=== PATIENT | female | born 1945 | race Caucasian/White ===

== ENCOUNTER → 2017-01-22 | Outpatient (CLI) | payer OTHER ==
[~2017-01-22] MED LIST: AMLO-511 PO; ASPI-1093 PO; ATOR20TA86 PO; METO-325 PO; TRAM50TA4 PO
== END | disposition home or self-care (01) ==
LOC: RADPV 09:30
PROVIDERS: ATTEND Family Medicine
DX: M19.011 Primary osteoarthritis, right shoulder (principal)

== ENCOUNTER 2022-07-31 12:50 | Emergency (ER) | payer OTHER ==
[~2022-07-31] VITALS: Ht 157.5 cm; Wt 55.7 kg
[~2022-07-31 12:50] MED LIST changes: +AMLO-257 PO; -AMLO-511 PO; -ASPI-1093 PO; +ASPI-1444 PO; -METO-325 PO; +METO-558 PO
[2022-07-31 13:33] VITALS: BP 141/79
[2022-07-31] MEDS ORDERED: NEOMYCIN/BACITRACIN/POLYMYXIN B OINTMENT PACKET TP ONE (16:45)
== END 2022-07-31 17:25 | disposition home or self-care (01) ==
LOC: EMS 12:50
DX: S00.12XA Contusion of left eyelid and periocular area, initial encounter (principal); S60.812A Abrasion of left wrist, initial encounter; S80.212A Abrasion, left knee, initial encounter; I10 Essential (primary) hypertension; Z85.42 Personal history of malignant neoplasm of other parts of uterus; Z90.710 Acquired absence of both cervix and uterus; W01.198A Fall on same level from slipping, tripping and stumbling with subsequent striking against other object, initial encounter; Y93.01 Activity, walking, marching and hiking; Y92.89 Other specified places as the place of occurrence of the external cause; Y99.8 Other external cause status
CPT/HCPCS: 70450; 99284

== ENCOUNTER 2022-08-11 11:34 | Inpatient (IN) | payer OTHER ==
[~2022-08-11] VITALS: Ht 162.6 cm; Wt 53.3 kg
[2022-08-11] MEDS ORDERED: LISI-892 PO (11:52)
[2022-08-11 12:00] LABS: BASOPHILS % (AUTO) 0.5 % (0.0-2.0); EOSINOPHILS % (AUTO) 1.6 % (1.0-6.0); HEMATOCRIT 39.7 % (36-46); HEMOGLOBIN 13.4 g/dL (12.0-16.0); LYMPHOCYTES % (AUTO) 16.1 % (22.0-44.0); MEAN CORPUSCULAR HEMOGLOBIN 32.3 pg (26.0-34.0); MEAN CORPUSCULAR HGB CONC 33.8 G/dL (31.0-37.0); MEAN CORPUSCULAR VOLUME 96 fL (80-100); MONOCYTES # (AUTO) 0.8 K/uL (0.1-1.0); MONOCYTES % (AUTO) 12.9 % (2.0-9.0); NEUTROPHILS # (AUTO) 4.4 K/uL (1.8-7.7); NEUTROPHILS % (AUTO) 68.9 % (40.0-70.0); PLATELET COUNT (AUTO) 227 K/uL (150-450); RED BLOOD CELL COUNT(AUTO) 4.15 MIL/uL (4.00-5.20); RED CELL DISTRIBUTION WIDTH 12.2 % (11.5-14.5)
[2022-08-11 12:12] LABS: PROTHROMBIN TIME 11.1 SEC (9.4-11.6)
[2022-08-11 12:15] LABS: ALBUMIN 4.1 g/dL (3.4-5.0); BILIRUBIN,TOTAL 0.7 mg/dL (0.1-1.0); CALCIUM, TOTAL 8.9 mg/dL (8.8-10.5); CREATININE 1.02 mg/dL (0.60-1.30); MAGNESIUM 2.3 mg/dL (1.80-2.40); PHOSPHORUS 3.2 mg/dL (2.5-4.9); POTASSIUM 3.4 mmol/L (3.5-5.1); TOTAL PROTEIN, SERUM 7.2 g/dL (6.4-8.2)
[2022-08-11 12:47] LABS: APPEARANCE,URINE CLEAR (CLEAR); BILIRUBIN,URINE NEGATIVE (NEGATIVE); GLUCOSE, URINE (UA) NEGATIVE (NEGATIVE); KETONES,URINE NEGATIVE (NEGATIVE); LEUKOCYTE ESTERASE ,URINE MODERATE (NEGATIVE); NITRATE,URINE NEGATIVE (NEGATIVE); OCCULT BLOOD,URINE SMALL (NEGATIVE); PH,URINE 6.5 (5.0-8.0); PROTEIN,URINE TRACE mg/dL (NEGATIVE); SPECIFIC GRAVITIY, URINE 1.015 (1.003-1.030)
[2022-08-11] MEDS ORDERED: ONDANSETRON HCL 4 MG/2 ML VIAL IVP PRN (13:00)
[2022-08-11] MEDS ORDERED: TOLVAPTAN 15 MG TABLET PO ONE (13:00)
[2022-08-11] MEDS ORDERED: ACETAMINOPHEN 325 MG TABLET PO PRN (13:00)
[2022-08-11 13:01] LABS: COVID AG,FIA SOURCE NASAL SWAB
[2022-08-11 13:04] LABS: BACTERIA,URINE Few /HPF (None Seen); RBC,URINE 0-2 /HPF (0-2); SQUAMOUS EPITHELIAL CELL,UR Few /LPF (None Seen); WBC,URINE 0-2 /HPF (0-5)
[2022-08-11 13:20] LABS: CREATININE,URINE RANDOM 167.5 mg/dL (30.0-125.0)
[2022-08-11 14:30] VITALS: BP 158/72
[2022-08-11] MEDS: HEPARIN SODIUM,PORCINE 5,000 UNITS/ML VIAL SQ SCH ×2 (16:00→23:19)
[2022-08-11 17:00] VITALS: BP 178/72
[2022-08-11 17:09] VITALS: BP 189/90
[2022-08-11 18:14] LABS: CARBON DIOXIDE 32 mmol/L (22-29); CHLORIDE 87 mmol/L (98-107); CREATININE 0.82 mg/dL (0.60-1.30); GLOMERULAR FILTR. RATE CALC > 60 mL/min (>60); GLUCOSE,RANDOM 107 mg/dL (70-110); POTASSIUM 3.6 mmol/L (3.5-5.1); UREA NITROGEN, BLOOD 18 mg/dL (7-18)
[2022-08-11 18:16] LABS: ANION GAP 5 mmol/L (8-16); SODIUM SERUM 124 mmol/L (136-145)
[2022-08-11] MEDS ORDERED: DEXTROSE 5%-WATER 250 ML IV ONE ×2 (19:00→20:00)
[2022-08-11] MEDS: DOCUSATE SODIUM 100 MG CAPSULE PO SCH (20:18)
[2022-08-11] MEDS: POTASSIUM CHLORIDE 20 MEQ ER TABLET PO SCH (20:18)
[2022-08-11] MEDS: HydrALAZINE HCL 20 MG/ML VIAL IVP PRN (20:18)
[2022-08-11 20:24] VITALS: BP 184/70
[2022-08-11 22:13] LABS: CREATININE,URINE RANDOM 13.2 mg/dL (30.0-125.0)
[2022-08-11 22:29] LABS: SODIUM SERUM 125 mmol/L (136-145)
[2022-08-11 22:44] LABS: ANION GAP 5 mmol/L (8-16); CALCIUM, TOTAL 9.2 mg/dL (8.8-10.5); CARBON DIOXIDE 32 mmol/L (22-29); CHLORIDE 88 mmol/L (98-107); CREATININE 0.87 mg/dL (0.60-1.30); GLUCOSE,RANDOM 116 mg/dL (70-110); UREA NITROGEN, BLOOD 18 mg/dL (7-18)
[2022-08-11 22:46] LABS: GLOMERULAR FILTR. RATE CALC > 60 mL/min (>60)
[2022-08-12 00:14] VITALS: BP 110/51
[2022-08-12 04:53] VITALS: BP 128/65
[2022-08-12 06:34] LABS: FREE T4 (FREE THYROXINE) 1.31 ng/dL (0.76-1.46); THYROID STIMULATING HORMONE 1.43 uIU/mL (0.36-3.74)
[2022-08-12 07:10] VITALS: BP 149/74
[2022-08-12] MEDS: DOCUSATE SODIUM 100 MG CAPSULE PO SCH ×2 (08:26→19:41)
[2022-08-12] MEDS: HEPARIN SODIUM,PORCINE 5,000 UNITS/ML VIAL SQ SCH ×3 (08:26→23:07)
[2022-08-12] MEDS: POTASSIUM CHLORIDE 20 MEQ ER TABLET PO SCH (08:27)
[2022-08-12] MEDS: FAMOTIDINE 20 MG TABLET PO SCH (08:27)
[2022-08-12] MEDS ORDERED: POTASSIUM CHL 10 MEQ/WATER 50 ML IV PRN (09:15)
[2022-08-12] MEDS ORDERED: POTASSIUM CHLORIDE 20 MEQ ER TABLET PO PRN (09:15)
[2022-08-12 11:10] VITALS: BP 136/59
[2022-08-12 14:48] VITALS: BP 128/64
[2022-08-12] MEDS ORDERED: SODIUM CHLORIDE 1 GM TABLET PO SCH (16:00)
[2022-08-12 20:14] VITALS: BP 143/75
[2022-08-13] VITALS (7 sets, daily range): BP systolic 125–155; BP diastolic 55–80
[2022-08-13 05:49] LABS: ANION GAP 6 mmol/L (8-16); CALCIUM, TOTAL 8.9 mg/dL (8.8-10.5); CARBON DIOXIDE 29 mmol/L (22-29); CHLORIDE 91 mmol/L (98-107); CREATININE 0.83 mg/dL (0.60-1.30); GLUCOSE,RANDOM 110 mg/dL (70-110); POTASSIUM 4.1 mmol/L (3.5-5.1); SODIUM SERUM 126 mmol/L (136-145); UREA NITROGEN, BLOOD 27 mg/dL (7-18)
[2022-08-13 05:50] LABS: GLOMERULAR FILTR. RATE CALC > 60 mL/min (>60)
[2022-08-13] MEDS: HEPARIN SODIUM,PORCINE 5,000 UNITS/ML VIAL SQ SCH ×3 (08:14→23:51)
[2022-08-13] MEDS: DOCUSATE SODIUM 100 MG CAPSULE PO SCH ×2 (08:14→20:34)
[2022-08-13] MEDS: FAMOTIDINE 20 MG TABLET PO SCH (08:14)
[2022-08-13] MEDS: SODIUM CHLORIDE 1 GM TABLET PO SCH ×2 (15:17→20:34)
[2022-08-13] MEDS: HydrALAZINE HCL 20 MG/ML VIAL IVP PRN (23:52)
[2022-08-14 00:45] VITALS: BP 160/80
[2022-08-14 04:14] VITALS: BP 135/60
[2022-08-14 06:34] LABS: ANION GAP 4 mmol/L (8-16); CALCIUM, TOTAL 8.9 mg/dL (8.8-10.5); CARBON DIOXIDE 29 mmol/L (22-29); CHLORIDE 93 mmol/L (98-107); CREATININE 0.78 mg/dL (0.60-1.30); GLUCOSE,RANDOM 116 mg/dL (70-110); PHOSPHORUS 3.4 mg/dL (2.5-4.9); POTASSIUM 4.5 mmol/L (3.5-5.1); SODIUM SERUM 126 mmol/L (136-145); UREA NITROGEN, BLOOD 24 mg/dL (7-18)
[2022-08-14 06:52] LABS: GLOMERULAR FILTR. RATE CALC > 60 mL/min (>60)
[2022-08-14 07:51] VITALS: BP 131/57
[2022-08-14] MEDS: HEPARIN SODIUM,PORCINE 5,000 UNITS/ML VIAL SQ SCH ×2 (07:54→15:36)
[2022-08-14] MEDS: FAMOTIDINE 20 MG TABLET PO SCH (07:56)
[2022-08-14] MEDS: DOCUSATE SODIUM 100 MG CAPSULE PO SCH (07:56)
[2022-08-14] MEDS: SODIUM CHLORIDE 1 GM TABLET PO SCH ×2 (07:56→15:45)
[2022-08-14 11:10] VITALS: BP 137/78
[2022-08-14 12:53] LABS: POTASSIUM,URINE RANDOM 76 mmol/L (12-75); SODIUM,URINE RANDOM 10 mmol/l (20-110)
[2022-08-14] MEDS ORDERED: NACL1 PO (13:50)
== END 2022-08-14 16:15 | disposition home or self-care (01) | DRG 641 ==
LOC: EMS 11:37 → 5S 13:38
PROVIDERS: ADMIT Internal Medicine; ATTEND Internal Medicine
DX: E87.1 Hypo-osmolality and hyponatremia (principal); E78.5 Hyperlipidemia, unspecified; I10 Essential (primary) hypertension; I07.1 Rheumatic tricuspid insufficiency; G31.84 Mild cognitive impairment of uncertain or unknown etiology; I27.20 Pulmonary hypertension, unspecified; E87.3 Alkalosis; Z82.49 Family history of ischemic heart disease and other diseases of the circulatory system; Z79.899 Other long term (current) drug therapy; Z85.42 Personal history of malignant neoplasm of other parts of uterus; Z86.73 Personal history of transient ischemic attack (TIA), and cerebral infarction without residual deficits; Z90.710 Acquired absence of both cervix and uterus; Z79.82 Long term (current) use of aspirin
CPT/HCPCS: 70450; 70486; 71045; 72125; 80048; 80053; 81001; 82550; 82570; 83735; 83880; 83930; 83935; 84100; 84132; 84133; 84300; 84439; 84443; 84484; 84540; 85025; 85610; 85730; 93005; 93306; 97116; 97162; 97530; 99285; G0378; J0360; J1644; J7060; 36415-L1; 36415-TC